=== PATIENT | female | born 1985 | race Caucasian/White ===

== ENCOUNTER 2018-11-20 21:36 | Emergency (ER) | payer OTHER | END 2018-11-20 23:29 | disposition home or self-care (01) | LOC: ED 21:36 ==

== ENCOUNTER 2018-11-22 08:17 | Emergency (ER) | payer OTHER ==
[2018-11-22] MEDS ORDERED: Sodium Chloride 0.9% 1000 ML 1,000 ML IV STA (08:38)
[2018-11-22] MEDS ORDERED: TORAdol 30 mg Injection IV ONE (08:38)
[2018-11-22] MEDS ORDERED: Zofran 4 MG/2 ML VIAL IV ONE (08:38)
--- NOTE | 2018-11-22 08:46 | ERPHSYRPT ---
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 She started c/o pain in her left flank area this morning in [facility], she is nauseated, denies vomiting, diarrhea, no fever , chills, but c/o urinary frequency and burning, her last MP was on Nov.02, denies current vaginal bleeding or discharge. She has a history of Cholecystectomy, Appendectomy, Tubal ligation and kidney stones in the past. Timing/Duration: hour(s) (2) Activities at Onset: none Quality: cramping, sharpness Abdominal Pain Onset Location: flank (left) Pain Radiation: LLQ Severity of Pain-Max: severe Severity of Pain-Current: severe Modifying Factors: Improves With: nothing Associated Symptoms: nausea Previous symptoms: same symptoms as today Allergies/Adverse Reactions: ibuprofen Adverse Reaction (Intermediate, Verified 11/22/18 08:42) Vomiting amoxicillin Adverse Reaction (Mild, Verified 11/22/18 08:42) Hives Penicillins Adverse Reaction (Mild, Verified 11/22/18 08:42) Hives Hx Tetanus, Diphtheria Vaccination/Date Given: No Hx Influenza Vaccination/Date Given: No Hx Pneumococcal Vaccination/Date Given: No - Review of Systems Constitutional: No Symptoms Respiratory: No Symptoms Cardiac: No Symptoms Abdominal/Gastrointestinal: Abdominal Pain, Nausea Genitourinary Symptoms: Frequency, Urgency, Flank Pain Musculoskeletal: No Symptoms Skin: No Symptoms Neurological: No Symptoms All Other Systems: Reviewed and Negative - Past Medical History Pertinent Past Medical History: Yes Neurological History: No Pertinent History ENT History: No Pertinent History Cardiac History: Arrhythmia Respiratory History: No Pertinent History Endocrine Medical History: No Pertinent History Musculoskeletal History: No Pertinent History GI Medical History: Gallbladder Disease History: Other Psycho-Social History: Anxiety, Depression, Panic Disorder Female Reproductive Disorders: Other - Past Surgical History Past Surgical History: Yes Neuro Surgical History: No Pertinent History Cardiac: No Pertinent History Respiratory: No Pertinent History Gastrointestinal: Cholecystectomy Genitourinary: Other Musculoskeletal: No Pertinent History Female Surgical History: Dilation & Curettage, Tubal Ligation - Social History Smoking Status: Current every day smoker Exposure to second hand smoke: Yes Drug Use: none Patient Lives Alone: No - Female History Hx Now: No - Nursing Vital Signs Nursing Vital Signs: Initial Vital Signs Temperature 97.8 F 11/22/18 08:24 Pulse Rate 69 11/22/18 08:24 Respiratory Rate 18 11/22/18 08:24 Blood Pressure 112/78 11/22/18 08:24 O2 Sat by Pulse Oximetry 99 11/22/18 08:24 Pain Scale Pain Intensity 4 - Physical Exam General Appearance: no apparent distress Ears, Nose, Throat Exam: normal ENT inspection, moist mucous membranes Neck Exam: normal inspection, non-tender, supple Respiratory Exam: normal breath sounds, lungs clear Cardiovascular Exam: regular rate/rhythm, normal heart sounds, normal peripheral pulses, No murmur Gastrointestinal/Abdomen Exam: soft, normal bowel sounds, tenderness (LLQ, mild) , No distention, No mass, No guarding, No pulsatile mass, No rebound, No hernia , No organomegaly Extremity Exam: normal inspection, No calf tenderness, No pedal edema Neurologic Exam: alert, oriented x 3, cooperative, normal mood/affect Skin Exam: normal color, warm, dry, No rash, No petechiae, No diaphoresis Lymphatic Exam: No adenopathy SpO2 Interpretation: normal O2 Delivery: Room Air - Course Nursing assessment & vital signs reviewed: Yes - CT Exams Abdomen/Pelvis CT Interpretation: Tele-radiologist Report, Other (left renal hydronephrosis, prominent left ureter without perinephric fluid or calculus, suspect recent passage of calculus. Right infrarenal perinephric stranding. ) Ordered Tests: Active Orders 24 hr Category Date Time Status IV Insertion STAT Care 11/22/18 08:38 Active ABDOMEN AND PELVIS W/0 CONTRAS [CT] Stat Exams 11/22/18 08:39 Completed CBC W DIFF Stat Lab 11/22/18 09:01 Completed CMP Stat Lab 11/22/18 09:01 Completed CULTURE,URINE Stat Lab 11/22/18 09:01 Received HCG,QUALITATIVE URINE Stat Lab 11/22/18 09:01 Completed LIPASE Stat Lab 11/22/18 09:01 Completed UA W/RFX UR CULTURE Stat Lab 11/22/18 09:01 Completed Urine Triage Profile Stat Lab 11/22/18 09:01 Completed Medication Summary Generic Name Dose Route Start Last Admin Trade Name Freq PRN Reason Stop Dose Admin Ceftriaxone Sodium/Dextrose 1 g in 50 mls @ 100 mls/hr 11/22/18 10:05 10:16 Rocephin 1 Gm-D5w 50 Ml Bag IV 11/22/18 10:34 200 ml/hr STAT STA 200 mls/hr Administration Discontinued Medications Generic Name Dose Route Start Last Admin Trade Name Olivier PRN Reason Stop Dose Admin Sodium Chloride 1,000 mls @ 999 mls/hr 11/22/18 08:38 11/22/18 08:58 Sodium Chloride 0.9% 1000 Ml IV 11/22/18 09:38 999 mls/hr .Q1H1M STA Administration Sodium Chloride Confirm 11/22/18 08:48 Sodium Chloride 0.9% 1000 Ml Administered 11/22/18 08:49 Dose 1,000 mls @ ud .ROUTE .STK-MED ONE Ceftriaxone Sodium/Dextrose Confirm 11/22/18 10:12 Rocephin 1 Gm-D5w 50 Ml Bag Administered 11/22/18 10:13 Dose 1 g in 50 mls @ ud IV .STK-MED ONE Ketorolac Tromethamine 30 mg 11/22/18 08:38 11/22/18 08:58 Toradol 30 Mg Injection IV 11/22/18 08:39 30 mg STAT ONE Administration Ketorolac Tromethamine Confirm 11/22/18 08:48 Toradol 30 Mg Injection Administered 11/22/18 08:49 Dose 30 mg .ROUTE .STK-MED ONE Ondansetron HCl 4 mg 11/22/18 08:38 11/22/18 08:58 Zofran 4 Mg/2 Ml Vial IV 11/22/18 08:39 4 mg STAT ONE Administration Ondansetron HCl Confirm 11/22/18 08:48 Zofran 4 Mg/2 Ml Vial Administered 11/22/18 08:49 Dose 4 mg .ROUTE .STK-MED ONE Tamsulosin HCl 0.4 mg 11/22/18 10:09 11/22/18 10:17 Flomax 0.4 Mg PO 11/22/18 10:10 0.4 mg STAT ONE Administration Tamsulosin HCl Confirm 11/22/18 10:12 Flomax 0.4 Mg Administered 11/22/18 10:13 Dose 0.4 mg .ROUTE .[email or web address] ONE Lab/Rad Data: Laboratory Result Diagrams 11/22/18 09:01 11/22/18 09:01 Laboratory Results 11/22/18 11/22/18 11/22/18 Range/Units 09:01 09:01 09:01 WBC (4.0-10.5) K/mm3 RBC (4.1-5.4) M/mm3 Hgb (12.0-16.0) gm/dl Hct (35-47) % MCV (78-100) fl MCH (26-32) pg MCHC (32-36) g/dl RDW (11.5-14.0) % Plt Count (150-450) K/mm3 MPV (6-9.5) fl Gran % (36.0-66.0) % Eos # (Auto) (0-0.5) Absolute Lymphs (auto) (1.0-4.6) Absolute Monos (auto) (0.0-1.3) Lymphocytes % (24.0-44.0) % Monocytes % (0.0-12.0) % Eosinophils % (0.00-5.0) % Basophils % (0.0-0.4) % Absolute Granulocytes (1.4-6.9) Basophils # (0-0.4) Sodium (137-145) mmol/L Potassium (3.5-5.1) mmol/L Chloride (98-107) mmol/L Carbon Dioxide (22-30) mmol/L Anion Gap (5-15) MEQ/L BUN (7-17) mg/dL Creatinine (0.52-1.04) mg/dL Estimated GFR ML/MIN Glucose (74-106) mg/dL Calcium (8.4-10.2) mg/dL Total Bilirubin (0.2-1.3) mg/dL AST (14-36) U/L ALT (0-35) U/L Alkaline Phosphatase (38-126) U/L Serum Total Protein (6.3-8.2) g/dL Albumin (3.5-5.0) g/dL Lipase (23-300) U/L Urine Color YELLOW (YELLOW) Urine Appearance SLIGHTLY CLOUDY (CLEAR) Urine pH 6.0 (5-6) Ur Specific [place] 1.016 (1.005-1.025) Urine Protein 30 (Negative) Urine Ketones SMALL (NEGATIVE) Urine Blood LARGE (0-5) Johnie/ul Urine Nitrite NEGATIVE (NEGATIVE) Urine Bilirubin NEGATIVE (NEGATIVE) Urine Urobilinogen NEGATIVE (0-1) mg/dL Ur Leukocyte Esterase TRACE (NEGATIVE) Urine WBC (Auto) 16-25 (0-5) /HPF Urine RBC (Auto) >101 (0-2) /HPF U Epithel Cells (Auto) FEW (FEW) /HPF Urine Bacteria (Auto) RARE (NEGATIVE) /HPF Urine Mucus (Auto) SLIGHT (NEGATIVE) /HPF Urine Culture Reflexed YES (NO) Urine Glucose NEGATIVE (NEGATIVE) mg/dL Urine HCG, Qual NEGATIVE (Negative) Urine Opiates Level POSITIVE (NEGATIVE) Ur Methadone NEGATIVE (NEGATIVE) Urine Barbiturates NEGATIVE (NEGATIVE) Ur Phencyclidine (PCP) NEGATIVE (NEGATIVE) Urine Amphetamine NEGATIVE (NEGATIVE) U Benzodiazepine Level NEGATIVE (NEGATIVE) Urine Cocaine NEGATIVE (NEGATIVE) Urine Marijuana (THC) NEGATIVE (NEGATIVE) 11/22/18 11/22/18 Range/Units 09:01 09:01 WBC 9.6 (4.0-10.5) K/mm3 RBC 5.15 (4.1-5.4) M/mm3 Hgb 15.7 (12.0-16.0) gm/dl Hct 45.0 (35-47) % MCV 87.4 (78-100) fl MCH 30.5 (26-32) pg MCHC 34.9 (32-36) g/dl RDW 12.3 (11.5-14.0) % Plt Count 293 (150-450) K/mm3 MPV 9.7 H (6-9.5) fl Gran % 73.7 H (36.0-66.0) % Eos # (Auto) 0.03 (0-0.5) Absolute Lymphs (auto) 1.65 (1.0-4.6) Absolute Monos (auto) 0.81 (0.0-1.3) Lymphocytes % 17.3 L (24.0-44.0) % Monocytes % 8.5 (0.0-12.0) % Eosinophils % 0.3 (0.00-5.0) % Basophils % 0.2 (0.0-0.4) % Absolute Granulocytes 7.05 H (1.4-6.9) Basophils # 0.02 (0-0.4) Sodium 140 (137-145) mmol/L Potassium 3.5 (3.5-5.1) mmol/L Chloride 103 (98-107) mmol/L Carbon Dioxide 25 (22-30) mmol/L Anion Gap 15.0 (5-15) MEQ/L BUN 14 (7-17) mg/dL Creatinine 0.80 (0.52-1.04) mg/dL Estimated GFR > 60.0 ML/MIN Glucose 102 (74-106) mg/dL Calcium 9.6 (8.4-10.2) mg/dL Total Bilirubin 1.00 (0.2-1.3) mg/dL AST 31 (14-36) U/L ALT 31 (0-35) U/L Alkaline Phosphatase 58 (38-126) U/L Serum Total Protein 7.8 (6.3-8.2) g/dL Albumin 4.2 (3.5-5.0) g/dL Lipase 28 (23-300) U/L Urine Color (YELLOW) Urine Appearance (CLEAR) Urine pH (5-6) Ur Specific [place] (1.005-1.025) Urine Protein (Negative) Urine Ketones (NEGATIVE) Urine Blood (0-5) Johnie/ul Urine Nitrite (NEGATIVE) Urine Bilirubin (NEGATIVE) Urine Urobilinogen (0-1) mg/dL Ur Leukocyte Esterase (NEGATIVE) Urine WBC (Auto) (0-5) /HPF Urine RBC (Auto) (0-2) /HPF U Epithel Cells (Auto) (FEW) /HPF Urine Bacteria (Auto) (NEGATIVE) /HPF Urine Mucus (Auto) (NEGATIVE) /HPF Urine Culture Reflexed (NO) Urine Glucose (NEGATIVE) mg/dL Urine HCG, Qual (Negative) Urine Opiates Level (NEGATIVE) Ur Methadone (NEGATIVE) Urine Barbiturates (NEGATIVE) Ur Phencyclidine (PCP) (NEGATIVE) Urine Amphetamine (NEGATIVE) U Benzodiazepine Level (NEGATIVE) Urine Cocaine (NEGATIVE) Urine Marijuana (THC) (NEGATIVE) - Progress Progress: improved Progress Note: 11/22/18 10:33 Pt is asleep, comfortable after Toradol, IV Zofran and saline bolus, afebrile, reviewed her results, she was started on IV Rocephin ( she took Keflex in the past without reaction), will discharge on PO Keflex, Flomax, and Zofran ODT to continue oral hydration and strain every urine and follow up with her physician in 2-3 days. Counseled pt/family regarding: lab results, diagnosis, need for follow-up, rad results - Departure Departure Disposition: Home Clinical Impression: Urinary tract infection Qualifiers: Urinary tract infection type: site unspecified Hematuria presence: without hematuria Qualified Code(s): N39.0 - Urinary tract infection, site not specified Condition: Stable Critical Care Time: No Referrals: DOCTOR,NO FAMILY [Primary Care Provider] - Instructions: Flank Pain, Kidney Stones (DC), Urinary Tract Infection, Adult ( DC) Additional Instructions: Rest x 2-3 days, drink plenty of fluids, and strain every urine, follow up with your physician in 2-3 days, return if severe pain, vomiting, fever> 101 F! Prescriptions: Ondansetron ODT 4 MG [Zofran Odt 4 mg] 4 mg PO Q6H PRN PRN #10 tab.rapdis PRN Reason: Nausea/Vomiting Cephalexin Mh 500 mg [Keflex 500 mg] 500 mg PO Q6H 7 Days #28 capsule Tamsulosin HCl 0.4 mg [Flomax 0.4 MG] 0.4 mg PO DAILY #5 cap
[2018-11-22] MEDS ORDERED: Sodium Chloride 0.9% 1000 ML 1,000 ML ONE (08:48)
[2018-11-22] MEDS ORDERED: TORAdol 30 mg Injection ONE (08:48)
[2018-11-22] MEDS ORDERED: Zofran 4 MG/2 ML VIAL ONE (08:48)
[2018-11-22 09:05] LABS: BASOPHIL % 0.2 % (0.0-0.4); Basophil (Absolute #) 0.02 (0-0.4); Eosinophil % 0.3 % (0.00-5.0); Eosinophil (Absolute #) 0.03 (0-0.5); Granulocyte Absolute (ANC) 7.05 (1.4-6.9); Granulocytes % 73.7 % (36.0-66.0); Hemoglobin 15.7 gm/dl (12.0-16.0); Lymphocyte (Absolute #) 1.65 (1.0-4.6); Lymphocytes % 17.3 % (24.0-44.0); Mean Cell Volume 87.4 fl (78-100); Mean Corpuscular Hemoglobin 30.5 pg (26-32); Mean Corpuscular Hgb Concent. 34.9 g/dl (32-36); Mean Platelet Volume 9.7 fl (6-9.5); Monocyte (Absolute #) 0.81 (0.0-1.3); Monocytes % 8.5 % (0.0-12.0); Platelet Count 293 K/mm3 (150-450); Red Blood Count 5.15 M/mm3 (4.1-5.4); Red Cell Distribution Width 12.3 % (11.5-14.0); White Blood Count 9.6 K/mm3 (4.0-10.5)
[2018-11-22 09:10] LABS: Appearance SLIGHTLY CLOUDY (CLEAR); Bacteria RARE /HPF (NEGATIVE); Bilirubin NEGATIVE (NEGATIVE); Blood LARGE Ery/ul (0-5); Epithelial Cells FEW /HPF (FEW); Glucose NEGATIVE (NEGATIVE); Ketones SMALL (NEGATIVE); Leukocyte Esterase TRACE (NEGATIVE); Mucus SLIGHT /HPF (NEGATIVE); Nitrite NEGATIVE (NEGATIVE); Protein,Urine Dip 30 (Negative); Specific Gravity 1.016 (1.005-1.025); Urobilinogen NEGATIVE mg/dL (0-1)
[2018-11-22 09:13] LABS: RBC >101 /HPF (0-2)
[2018-11-22 09:17] VITALS: O2SAT 98
[2018-11-22 09:24] LABS: Amphetamine,Urine NEGATIVE (NEGATIVE); Barbiturate,Urine NEGATIVE (NEGATIVE); Benzodiazepine,Urine NEGATIVE (NEGATIVE); Cocaine,Urine NEGATIVE (NEGATIVE); Methadone,Urine NEGATIVE (NEGATIVE); Opiate,Urine POSITIVE (NEGATIVE); PCP,Urine NEGATIVE (NEGATIVE); THC,Urine NEGATIVE (NEGATIVE)
[2018-11-22 09:26] LABS: ALBUMIN 4.2 g/dL (3.5-5.0); ALKALINE PHOSPHATASE 58 U/L (38-126); BLOOD UREA NITROGEN 14 mg/dL (7-17); CHLORIDE 103 mmol/L (98-107); Calcium 9.6 mg/dL (8.4-10.2); Carbon Dioxide 25 mmol/L (22-30); Glucose 102 mg/dL (74-106); LIPASE 28 U/L (23-300); Potassium 3.5 mmol/L (3.5-5.1); SGOT/AST 31 U/L (14-36); SGPT/ALT 31 U/L (0-35); SODIUM 140 mmol/L (137-145); Total Protein 7.8 g/dL (6.3-8.2)
--- NOTE | 2018-11-22 10:02 | XRAY ---
Indication: Left flank pain. History right kidney stone with extraction one week ago. Multiple contiguous axial images obtained through the abdomen and pelvis without contrast as ordered. Comparison: None Lung bases demonstrates minimal bibasilar dependent atelectasis. No infiltrate or effusion. Heart is not enlarged. Noncontrasted stomach and bowel loops appear nonobstructed. Patient reports appendectomy and cholecystectomy. Left kidney is moderately hydronephrotic without perinephric fluid. Left ureter is also prominent up to 10 mm in diameter without calculus. Findings can be seen with passage of calculus. Inferior right kidney demonstrates minimal perinephric stranding either related to recent obstructive uropathy versus underlying inflammatory/infectious process. Urinary bladder demonstrates intraluminal air either from recent catheterization versus gas-forming bacterial infection. 3.4 cm cervical nabothian cysts. No free fluid/air. Remaining liver, pancreas, spleen, adrenal glands, right kidney, right ureter, uterus, and aorta appear unremarkable for noncontrast exam. Osseous structures intact. Impression: 1. Left renal hydronephrosis and prominent left ureter without perinephric fluid or calculus. Suspect recent passage of calculus. 2. Right infrarenal perinephric stranding either related to recent obstructive uropathy versus underlying inflammatory/infectious process. Urinary bladder also demonstrates intraluminal air either from recent catheterization versus gas-forming bacterial infection. 3. Incidental 3.4 cm cervical nabothian cysts. 4. Remaining CT abdomen/pelvis without contrast exam is negative. CTDI 22.66
[2018-11-22] MEDS ORDERED: ROCEPHIN 1 Gm-D5w 50 ml Bag** 1 G/50 ML IVPB IV STA (10:05)
[2018-11-22] MEDS ORDERED: Flomax 0.4 MG PO ONE (10:09)
[2018-11-22] MEDS ORDERED: Flomax 0.4 MG ONE (10:12)
[2018-11-22] MEDS ORDERED: ROCEPHIN 1 Gm-D5w 50 ml Bag** 1 G/50 ML IVPB IV ONE (10:12)
[2018-11-22 11:01] VITALS: BP 123/76; PULSE 66
== END 2018-11-22 11:37 | disposition home or self-care (01) ==
LOC: ED 08:17
DX: N39.0 Urinary tract infection, site not specified (principal)
CPT/HCPCS: 36415; 74176; 80053; 80307; 81001; 83690; 84703; 85025; 87086; 96360; 96365; 96374; 96375; 99284; J0696; J1885; J2405; A9270-GY

== ENCOUNTER 2020-02-26 08:36 | Emergency (ER) | payer OTHER ==
[2020-02-26] MEDS ORDERED: TORAdol 30 mg Injection IM ONE (09:08)
[2020-02-26] MEDS ORDERED: TORAdol 30 mg Injection ONE (09:11)
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
[2020-02-26 09:23] VITALS: BP 124/73; PULSE 84
[2020-02-26 10:06] VITALS: O2SAT 99
== END 2020-02-26 09:33 | disposition home or self-care (01) ==
LOC: ED 08:36
DX: K08.89 Other specified disorders of teeth and supporting structures (principal)
CPT/HCPCS: 96372; 99283; J1885